=== PATIENT | female | born 1990 | race Caucasian/White ===

== ENCOUNTER → 2020-04-19 | Outpatient (CLI) | payer SELFPAY | LOC: M LABSMTC 13:57 | PROVIDERS: ATTEND Pediatrics | DX: Z20.828 Contact with and (suspected) exposure to other viral communicable diseases (principal) ==

== ENCOUNTER → 2024-10-24 | Outpatient (CLI) | payer OTHER | LOC: M WUC 09:51 | PROVIDERS: ATTEND Internal Medicine | DX: M25.472 Effusion, left ankle (principal) ==